=== PATIENT | female | born 1980 ===

== ENCOUNTER → 2017-01-25 | Emergency (ER) | payer SELFPAY ==
[~2017-01-25] MED LIST: Betamethasone Soluspan 30 mg/5mL Inj Susp IM ONE
--- NOTE | 2017-01-25 15:40 | OBHP ---
Datetime: 01/25/2017 12:30 IP Adm Impression: , intrauterine ; No Active Labor; Intact Membranes IP Chief Complaint Other: Sent by Dr. Ward IP Adm Impression Other: Steroid injection IP Admit Plan: Observation/Evaluation Admit Comment, IP Provider: This is a 36 y/o at 25w6d of GA of Twin , WINSOME : 05/04/17 based on LMP who was sent by [facility]'s office ( dr. Ward) for steroid injection. Patient reports that yesterday she was feeling lower abdomianl pressure sensation associated with mild hip pain for 1 danny r, and today this morning for a couple of hours she was feeling the same lower abdominal cramps like menses, pressure sensation with hip pain. But denies uterine contractions, LOF and /Or vaginal bleedi ng. Patient was sent by dr. Ward to receive first dose of steroid injection due to cervix length. Reports good movemnets. O:as above Growth scan on 01/25/17 showed: cervix measured 3.6 cm with funneling noted measuring 1.6 x 1.3 cm. A: 36 y/o at 25w6d of GA of Twin , with decreased cervix length,and in no active labor. Plan: -Continues external monitor -Betamethasone 12 mg IM first dose today. -Patient intructed to come back tomorrow for second dose of steroid. -Case discussed with Dr. Kassi Alvarez PGY1 OBH ADDENDUM pt seen _ examined by me. Correction and clarification of above- cervical lenght norml but funnel ing noted on us of [id number]. obhx: x4. no h/o ptd pmhx: denies pshx: denies medic: pnv shx: denies etoh, drugs or tobacco i: 25.6wks with twins p: betamethasone 12mg x1 now. indication for betameth d/w pt pelvic rest until delivery Pelvic Type - PN: Adequate Extremities - PN: Normal Abdomen - PN: Normal Lungs - PN: Normal Heart - PN: Normal Thyroid - PN: Normal Neurologic - PN: Normal HEENT - PN: Normal General - PN: Normal FHR - Baseline A Provider: 135, 145 Membranes, Provider: Intact Contraction Comments Provider: no Comments, ACOG Physical Exam: No VE or Speculum exam done IP Hx Assessment: The History has been Reviewed and is Current EGA AdmitDate IP: 25.6 Vital Signs Provider: Reviewed; Within Normal Limits IP Chief Complaint: Other NICHD Variability Prov Fetus A: Moderate 6-25bpm NICHD Accel Fetus A IP Provider: 10X10 FHR Category Provider Fetus A: Category I NICHD Decel Fetus A IP Provider: None
== END | disposition home or self-care (01) ==
LOC: H.EROB2 11:13
DX: O30.003 Twin pregnancy, unspecified number of placenta and unspecified number of amniotic sacs, third trimester (principal); O26.93 Pregnancy related conditions, unspecified, third trimester; R10.2 Pelvic and perineal pain; Z3A.25 25 weeks gestation of pregnancy; Z23 Encounter for immunization

== ENCOUNTER 2017-01-26 13:45 | Emergency (ER) | payer SELFPAY ==
[2017-01-26 13:50] VITALS: BMI 32.4
[2017-01-26] MEDS ORDERED: Betamethasone Soluspan 30 mg/5mL Inj Susp IM ONE (13:50)
--- NOTE | 2017-01-26 19:40 | OBDCSUM ---
Datetime: 01/26/2017 13:42 Discharged to, Provider: Home Follow up at, Provider: Shakila Reddy NP Disch Instr Activity: Normal activity Disch Instr Diet: Regular Discharge Time: 01/26/2017 13:43 Follow up in weeks, Provider: 02/24/2017 Disch Referrals: None Discharge Comment, Provider: Surinder second steroid dose Discharge Diagnosis Prov Other: Shortened cervix
--- NOTE | 2017-01-26 19:40 | OBHP ---
Datetime: 01/26/2017 14:00 Admit Comment, IP Provider: This is a 36 y/o at 25w6d of GA of Twin , WINSOME : 05/04/17 based on LMP who was sent for 2nd steroid injection. Reports good movemnets. O:as above Growth scan on 01/25/17 showed: cervix measured 3.6 cm with funneling noted measuring 1.6 x 1.3 cm. A: 36 y/o at 25+w Shortened cervix length Plan: -Betamethasone 12 mg IM 2nd dose follow up as scheduled 1-2w Abdomen - PN: Normal Back - PN: Normal HEENT - PN: Normal General - PN: Normal Comments, ACOG Physical Exam: ROS: General - no fatigue HEENT: No MATIAS; no visual disturbance CV: no CP; no palpitations RESP: No Cough; no SOB GI: No N/V/D : No F/U/D MS: no joint pain Pool Provider: Negative IP Hx Assessment: The History has been Reviewed and is Current EGA AdmitDate IP: 26.0 IP Chief Complaint: Other FHR Category Provider Fetus A: Category I NICHD Decel Fetus A IP Provider: None
== END 2017-01-26 23:00 | disposition home or self-care (01) ==
LOC: H.EROB2 13:45
DX: O26.872 Cervical shortening, second trimester (principal); O30.002 Twin pregnancy, unspecified number of placenta and unspecified number of amniotic sacs, second trimester

== ENCOUNTER 2018-03-30 14:42 | Emergency (ER) | payer SELFPAY ==
--- NOTE | 2018-03-30 17:33 | OBHP ---
Datetime: 03/30/2018 17:26 IP Adm Impression: , intrauterine ; No Active Labor; Intact Membranes IP Admit Plan: Observation/Evaluation; Discharge home Admit Comment, IP Provider: The patient's a 37-year-old G6 para 6 at 31 weeks gestation. Patient sta nuris she fell on her buttocks on 03/29/2018 and decided to seek medical attention. Patient denies any vaginal bleeding any leakage of fluid she reports good movement. Patient's care has be en unremarkable. Past medical history hypothyroidism Medications Synthroid and vitamins Past surgical history 1 previous delivery twin Past obstetrical history 4 normal spontaneous vaginal deliveries Social history denies alcohol tobacco use Review of systems patient denies headache chest pain shortness of breath palpitations nausea vomit ing diarrhea heat or cold intolerance easy bruisability musculoskeletal or neurological complaints Vital signs stable afebrile Physical exam seeing notes Intrauterine at 31 weeks status post fall approximately 24 hours ago. heart rate monitor reactive Bedside sonogram breech presentation adequate fluid records from [facility] health reviewed Patient discharged home patient to follow up with PMDD in 1 week Pelvic Type - PN: Adequate Extremities - PN: Normal Abdomen - PN: Normal Back - PN: Normal Breast - PN: Not Done Lungs - PN: Normal Heart - PN: Normal Thyroid - PN: Normal Neurologic - PN: Normal HEENT - PN: Normal General - PN: Normal FHR - Baseline A Provider: 145 Gestation - Est Wks by US: 31.0 Pool Provider: Negative EGA AdmitDate IP: 31.6 Vital Signs Provider: Reviewed IP Chief Complaint: Trauma/Fall NICHD Variability Prov Fetus A: Moderate 6-25bpm NICHD Accel Fetus A IP Provider: 15X15 FHR Category Provider Fetus A: Category I NICHD Decel Fetus A IP Provider: None Dilatation, Provider: 0 Effacement, Provider: 0 Station, Provider: -2 Genitourinary Exam: Normal DTRs - PN: Normal
[2018-03-30 22:02] VITALS: BP 92/59; PULSE 78; RESP 18; TEMP 98.2; O2SAT 100
== END 2018-03-30 17:35 | disposition home or self-care (01) ==
LOC: H.EROB2 14:42
DX: O36.93X0 Maternal care for fetal problem, unspecified, third trimester, not applicable or unspecified (principal); Z3A.31 31 weeks gestation of pregnancy; Z04.3 Encounter for examination and observation following other accident

== ENCOUNTER 2018-05-14 22:12 | Inpatient (IN) | payer MEDICAID, SELFPAY ==
[2018-05-14 22:49] VITALS: BMI 30.9
[2018-05-14] MEDS ORDERED: ceFAZolin IV 2 gm in Dextrose 2 GM/50 ML BAG IVPB ONE (22:49)
[2018-05-14] MEDS ORDERED: Lactated Ringer's 1,000 ML IV ONE ×2 (22:49)
[2018-05-14] MEDS ORDERED: Propofol 10 mg/ml Inj (20 ML) ONE ×2 (22:52→23:15)
[2018-05-14] MEDS ORDERED: Rocuronium 10 mg/ml (5 ml) ONE (22:53)
[2018-05-14] MEDS ORDERED: cefOXitin IV 1 gm in Dextrose 1 GM/50 ML BAG IVPB ONE (22:55)
[2018-05-14] MEDS ORDERED: Oxytocin 30 units/LR 500ML 30 U/500 ML BAG IV ONE (22:59)
[2018-05-14] MEDS ORDERED: Lactated Ringer's 1,000 ML IV SCH (23:00)
[2018-05-14] MEDS ORDERED: Cellulose Hemostat 2X3 Sheet ONE (23:45)
[2018-05-15] MEDS ORDERED: cefOXitin IV 1 gm in Dextrose 1 GM/50 ML BAG IVPB ONE
[2018-05-15] MEDS ORDERED: Oxycodone/Acetaminophen 5/325 mg Tab PO PRN ×2 (00:15→10:04)
[2018-05-15] MEDS ORDERED: Dexamethasone 4 mg/1 ml IVP PRN (00:31)
--- NOTE | 2018-05-15 00:36 | OBDS ---
DELIVERY PERSONNEL Delivery Doctor: Jeremy Payne MD Wire Spooler: Мария Mary RN/Yovana Young RN Anesthesiologist: Jina Barillas MD Resident: Azul MATERNAL INFORMATION Delivery Anesthesia: General Medications in Delivery: Pitocin Maternal Complications: Precipitous Labor (<3hrs) Provider Comments: Repeat section of a viable female infant with BW of 2980gm delivered in complete breech presentation with score of 9 and 9. EBL- 800mls Patient tolerated the prodedure well LABOR SUMMARY EDC: 05/26/2018 00:00 No. Babies in Womb: 1 Attempted: No Labor Anesthesia: General LABOR INFORMATION Reason for Induction: Not Applicable Group B Beta Strep: Negative Antibiotics # of Doses: n/a Antibiotics Time of Last Dose: n/a Steroids Given: None Reason Steroids Not Administered: Not Applicable MEMBRANES Membranes Rupture Method: Spontaneous Rupture of Membranes: 05/14/2018 22:00 Length of Rupture (hrs): 1.27 Amniotic Fluid Color: Clear Amniotic Fluid Amount: Moderate STAGES OF LABOR Stage 3 hrs: 0 Stage 3 min: 1 CSECTION DELIVERY Primary Indication: Repeat Secondary Indication: Breech CSection Urgency: Non Elective CSection Incidence: Repeat Labor: Labor Elective: Nonelective CSection Incision: Lower Uterine Transverse BABY A INFORMATION Delivery Date/Time: 05/14/2018 23:16 Method of Delivery: Born in Route : No : N/A Forceps: N/A Vacuum Extraction: N/A Shoulder Dystocia : No SHOULDER DYSTOCIA BABY A Delivery Date/Time: 05/14/2018 23:16 PRESENTATION/POSITION BABY A Presentation: Breech PLACENTA INFORMATION BABY A Placenta Delivery Time : 05/14/2018 23:17 Placenta Method of Delivery: Expressed Placenta Status: Delivered SCORES BABY A Heart Rate 1 min: >100 bpm Resp Effort 1 min: Good Cry Reflex Irritability 1 min: Cough or Sneeze or Pulls Away Muscle Tone 1 min: Active Motion Color 1 min: Body Gorst, Extremities Blue Resuscitation Effort 1 min: Tactile Stimulation SCORE 1 MIN: 9 Heart Rate 5 min: >100 bpm Resp Effort 5 min: Good Cry Reflex Irritability 5 min: Cough or Sneeze or Pulls Away Muscle Tone 5 min: Active Motion Color 5 min: Body Gorst, Extremities Blue Resuscitation Effort 5 min: N/A SCORE 5 MIN: 9 INFORMATION BABY A Gestational Age at Delivery: 38.2 Gestational Status: Term Infant Outcome : Liveborn Condition : Stable Infant Sex: Female IDENTIFICATION/MEDS BABY A ID Band Location: Left Leg; Left Arm WEIGHT/LENGTH BABY A Birthweight (gms): 2980 Infant Weight (lb): 6 Infant Weight (oz): 9 CORD INFORMATION BABY A No. Cord Vessels: 3 Cord Blood Taken: Yes Suction: Mouth; Nose ASSESSMENT BABY A Complications: None Physical Findings at Delivery: Within Normal Limits Respirations: Appears Normal Health Companion/ALS Called : No Care By: Dr Summers/Kaia Transferred To: Nursery
[2018-05-15] MEDS: HYDROmorphone 0.5 mg/0.5 ml ISec IVP PRN ×2 (00:46→01:45)
[2018-05-15 00:48] VITALS: RESP 20
--- NOTE | 2018-05-15 00:49 | OBHP ---
Datetime: 05/14/2018 22:44 IP Adm Impression: Term, intrauterine ; Active labor; Ruptured Membranes IP Adm Impression Other: Previous Section X1 IP Admit Plan: Admit to unit; Initiate Section protocol Admit Comment, IP Provider: Patient was brought in from the emergency room c/o ruptured membranes si nce 7pm with strong pelvic pressure and pain. She is with 1 set of twins in her last which was delivered by a section. Patient had been scheduled for a repeat delivery at 39weeks.She denies any vaginal bleedi ng. PNC is with Dr Palacios at the [facility]. O: Patient was apparently expressing pain from regular contractions. Abd: soft, NT, Bs- pressnt TOCO - Q 2-4 mins apart FHR- category 1 : breech felt, 10/100/-2 Assessment: IUP at 38.2wks with breech presentation Previous X1 Active labor Spontaneous rupture of membranes. Plan: Admit to LND Prepare for an delivery Extremities - PN: Normal Abdomen - PN: Normal Back - PN: Normal Lungs - PN: Normal Heart - PN: Normal Neurologic - PN: Normal General - PN: Normal Presentation-Admit: Breech FHR - Baseline A Provider: 150s Amniotic Fluid Color, Provider: Meconium, Light Membranes, Provider: Ruptured Contraction Comments Provider: irregular Gestation - Est Wks by US: 38.2 EGA AdmitDate IP: 38.2 Vital Signs Provider: Reviewed IP Chief Complaint: Uterine contractions; Suspected ruptured membranes; Maternal discomfort NICHD Variability Prov Fetus A: Moderate 6-25bpm NICHD Accel Fetus A IP Provider: 15X15 FHR Category Provider Fetus A: Category I NICHD Decel Fetus A IP Provider: None Dilatation, Provider: 10 Effacement, Provider: 100 Station, Provider: -2 Genitourinary Exam: Normal
--- NOTE | 2018-05-15 00:53 | PCM.SURG1 ---
Surgeon's Initial Post Op Note - Surgeon's Notes Surgeon: Dr Payne Hr Business Partner Consultant: Dr Liang( [facility] Practice Resident) Type of Anesthesia: General Endo Anesthesia Administered By: Dr Barillas Pre-Operative Diagnosis: IUP at 38.2 wks, Previous Section in labor, SROM,Breech presentatiom Operative Findings: Live female infant with BW of 2980g delivered in complete breech presentation in the left sacroanterior positioning. scores 9 and 9. Light meconium amniotic fluid. Lower uterine segment was very thin. The uterus, both fallopian tubes and both ovaries appeared normal. IV Fluid intake - 1500mls. EBL - 800mls. Urine output - 300mls Post-Operative Diagnosis: Same as Preop diagnosis Operation Performed: Repeat Low transverse Section Specimen/Specimens Removed: Routine cord blood Estimated Blood Loss: EBL {In ML}: 800 Blood Products Given: N/A Post-Op Condition: Good Date of Surgery/Procedure: 05/15/18 Time of Surgery/Procedure: 00:59
[2018-05-15 02:19] LABS: BASO # 0.1 K/uL (0.0-0.2); BASO % 0.6 % (0.0-2.0); EOS % 0.2 % (0.0-4.0); HEMOGLOBIN 11.2 g/dL (12.0-16.0); LYMPH # 1.9 K/uL (1.0-4.3); LYMPH % 21.8 % (20.0-40.0); MEAN CELL VOLUME 88.7 fl (81.0-99.0); MEAN CORPUSCULAR HEMOGLOBIN 30.7 pg (27.0-31.0); MEAN CORPUSCULAR HGB CONC 34.6 g/dL (33.0-37.0); MEAN PLATELET VOLUME 9.9 fl (7.2-11.7); MONO # 0.6 K/uL (0.0-0.8); MONO % 6.6 % (0.0-10.0); NEUT # 6.2 K/uL (1.8-7.0); NEUT % 70.8 % (50.0-75.0); RBC 3.64 Mil/uL (3.80-5.20); RED CELL DISTRIBUTION WIDTH 13.5 % (11.5-14.5); WHITE BLOOD COUNT 8.8 K/uL (4.8-10.8)
[2018-05-15] MEDS ORDERED: Lactated Ringer's 1,000 ML IV SCH (06:06)
[2018-05-15] MEDS: Levothyroxine 150 MCG TAB PO SCH (06:27)
[2018-05-15] MEDS ORDERED: Levothyroxine 150 MCG TAB PO SCH (06:30)
[2018-05-15 07:33] LABS: HEMOGLOBIN 10.4 g/dL (12.0-16.0); MEAN CELL VOLUME 87.6 fl (81.0-99.0); MEAN CORPUSCULAR HEMOGLOBIN 31.1 pg (27.0-31.0); MEAN CORPUSCULAR HGB CONC 35.5 g/dL (33.0-37.0); RBC 3.33 Mil/uL (3.80-5.20); RED CELL DISTRIBUTION WIDTH 13.6 % (11.5-14.5); WHITE BLOOD COUNT 16.5 K/uL (4.8-10.8)
[2018-05-15] MEDS ORDERED: Multivitamin With Minerals Tab PO SCH (09:00)
[2018-05-15] MEDS: Multivitamin With Minerals Tab PO SCH (09:06)
[2018-05-15] MEDS: Oxycodone/Acetaminophen 5/325 mg Tab PO PRN ×2 (10:47→21:45)
--- NOTE | 2018-05-15 14:32 | OBPPN ---
Datetime: 05/15/2018 09:10 PP Nausea Prov: Denies PP Flatus Prov: No PP BM Prov: No PP Heart Prov: Normal PP Lungs Prov: Normal PP Abdomen/Uterus Prov: Normal PP Extremities Prov: Normal PP C/S Incision Prov: Normal PP Impression Prov: Normal progression (Annotations: Data stored by CPN on behalf of user ) PP Progress Note Prov: POD 1 37 yo , s/p repeat on 05/14 at 2316. Pt seen/examined this am, lundberg was removed p rior to seeing pt. Pt to receive pain medication PO. Tolerating liquid diet- drank some juice. Has pa ssed gas, not gotten out of bed yet. Stated she felt tired and wanted to sleep. Denied headache, ches t pain, dyspnea. PE: Gen: awake, alert Resp: clear to ausc biltaterally, normal effort CV: RRR Abd: +BS, appropriately TTP, uterus firm below umbilicus; dressing clean,dry,intact Ext: no edema, with SCDs Neuro/Psych: AAOx3, no gross deficit, preserved affect/mood PP H/H: 10.4/29.2 A/P: 37 yo , PPD 1, s/p repeat on 05/14 at 2316. Pain control, advance diet as tolerated, encourage incentive spirometry use, encourage ambulation and , SCDs. -[email or web address] Attending Note:Patient was seen with the Resident and I agree with the above. Vital Signs Provider PP: Reviewed; Within Normal Limits
[2018-05-15] MEDS ORDERED: Simethicone 40 mg/0.6 ml Liquid (30 ml) PO PRN (17:57)
[2018-05-15] MEDS: Simethicone 80 mg Chewtab PO PRN (18:58)
[2018-05-16] MEDS: Levothyroxine 150 MCG TAB PO SCH (06:01)
[2018-05-16] MEDS: Simethicone 80 mg Chewtab PO PRN ×2 (06:01→21:37)
[2018-05-16] MEDS: Oxycodone/Acetaminophen 5/325 mg Tab PO PRN ×3 (06:03→21:37)
--- NOTE | 2018-05-16 08:07 | OBPPN ---
Datetime: 05/16/2018 06:45 PP Pain Prov: Within normal limits PP Nausea Prov: Denies PP Flatus Prov: No PP BM Prov: No PP Heart Prov: Normal PP Lungs Prov: Normal PP Abdomen/Uterus Prov: Normal PP Lochia Prov: Normal PP CVA Tenderness Prov: Normal PP Extremities Prov: Normal PP C/S Incision Prov: Normal PP Progress Prov: Normal PP Impression Prov: Normal progression; Pain PP Progress Note Prov: [id number] S: 37 yo . s/p C section on 05/14/18 POD 2. Seen and examined at bedside this am. Patient d enies any significant overnight events except gas pains and constipation since last night. Also repo rts severe pelvic pain which extended to her left back asked for pain medicine to control. OOB/Ambula tion well without dizziness. Bottle feeding without difficulty. Tolerating liquids well, advancing as tolerated. Lochia is similar to menses. Voiding freely with no blood noted, no bowel movement, not p assing gas per rectum. Denies fever/chills, diarrhea, nausea/vomiting, CP/SOB , Lightheadedness, calf pain. O: BP:111/65, HR:85, RR:20, T 98.2F CBC 10.4/29.2,blood type: O+, rubella: Immune, TDAP-03/18/18 PHYSICAL EXAM: GEN: AAOx3, Resting comfortably in bed, NAD HEENT: NCAT, White sclera, pink conjunctiva, oral mucosa moist. LUNGS: CTA B/L, no wheezing, rhonchi, or rales, B/L chest rise CVS: RRR, S1, S2, No murmurs, rubs, gallops ABD: ND, +BS, firm fundus @ umbilical level. Soft, appropriate TTP, Incision: Clean, dry and intac t. No induration, redness or fluctuation. EXT: No edema, negative Nelli's sign, calves nontender NEURO/Psych: no gross focal deficit, preserved affect and mood. A/P 37yo POD2 s/p on 05/14/18 @ 23:16. Pt afebrile, tolerating pain with medication, tolerating liquid diet advancing as tolerated, adequate urine output. Encouraged and ambulation Percocet 5/325 mg 1-2 tablets po q/ 6 hrs if mod/severe pain Ibuprofen 600 mg 1 tab q/ 6 hrs po if mild pain. Colace-constipation Qdpvfdb38.2mg PO HS for gas [id number] Discussed post op contraception patient signed consent for BTL, however due to STAT section didn t end up doing it, patient wants IUD. Discussed follow up at [facility] in 1 wk for wound check, 4-6 post Bri Camarillo M.D. PGY-1 Reviewed and discussed with Attending OB Hospitalist Addendum: Pt seen and examined by me. Agree w/ above. POD 2 s/p repeat c/s, doing well, bottle feeding. Encouraged ambulation. (ES) Vital Signs Provider PP: Reviewed
[2018-05-16] MEDS: Multivitamin With Minerals Tab PO SCH (09:01)
--- NOTE | 2018-05-16 09:01 | OP ---
PROCEDURE DATE: 05/14/2018 PREOPERATIVE DIAGNOSIS: Intrauterine at 38 weeks and 2 days with a history of previous section in labor with spontaneous rupture of membrane and breech presentation. POSTOPERATIVE DIAGNOSIS: Intrauterine at 38 weeks and 2 days with a history of previous section in labor with spontaneous rupture of membrane and breech presentation. PROCEDURE DONE: A repeat low transverse section performed on 05/14/2018. SURGEON: Dr. Payne. CROSSING WATCHMAN: Dr. Liang, family practice resident. Assistance for this procedure was needed for exposure of tissues and help in the conduct of the surgery. Manager Assurance remained with the surgery throughout its entire length. TYPE OF ANESTHESIA: General endotracheal. ANESTHESIA ADMINISTERED BY: Dr. Barillas. FINDINGS: A live female infant with weight of 2980 grams delivered in complete breech presentation with a left sacral anterior positioning. The scores were 9 in the first and fifth minutes respectively. The amniotic fluid has light meconium. The lower uterine segment was very thin. The uterus both fallopian tubes and both ovaries appeared normal. IV FLUID INTAKE: About 1500 mL. ESTIMATED BLOOD LOSS: 800 mL. URINE OUTPUT: 300 mL of clear urine. DESCRIPTION OF PROCEDURE: After obtaining an informed consent, the patient was sent to the OR, where she was placed in a supine position with the left lateral tilt on the OR table. The patient was given general anesthesia without any problem. The patient was then prepped and draped in the usual sterile fashion. A Pfannenstiel skin incision was made using a scalpel. This incision was carried through the subcutaneous tissues so the rectus fascia was identified. Using a Bovie device, a transverse incision was made in the mid portion of the rectus muscles. This incision was extended to both sides using the Bovie device. The rectus fascia was lifted off the underlying rectus muscles both superiorly and inferiorly by means of both sharp and blunt dissection. The rectus muscle was in the midline to expose the peritoneum, which was tented between 2 Gabriela clamps and sharply entered and with good visualization of the bladder. While the abdominal cavity was entered, the above findings were noted. The bladder flap was created and the bladder peritoneum retracted inferiorly to expose the lower uterine segment which was noted to be very thin. A lower transverse low incision was made with the scalpel and this was extended to both sides bluntly using both index fingers. The baby which was located in complete breech presentation with the left sacral anterior positioning was identified. Babys right leg was grabbed and the baby was delivered through the uterine incision. The mouth and nostrils of baby were bulb suctioned after delivery and the 3-vessel cord was clamped and cut and was given to the nurse. Umbilical cord blood was taken for routine use and the placenta was manually removed from the uterine cavity. The uterus was brought out of the abdominal cavity and was cleaned of all debris using dry laparotomy pads. The uterine incision was then closed in 2 layers using Vicryl #0. The first layer in running locked fashion and the second layer in running fashion and imbricating the second layer. Once hemostasis has been noted, irrigation of the pelvis both anterior and posterior to the uterus was undertaken. The uterus was returned to the abdominal cavity. Once hemostasis was assured, attention was turned to the anterior abdominal wall, which was closed in layers with 2-0 Vicryl for the peritoneum and the rectus muscles. The rectus fascia was re-approximated using Vicryl #0. The subcutaneous tissue was brought together using #2-0 plain. The skin was closed in the subcuticular fashion using Vicryl #4-0. The patient tolerated the procedure well. All counts of instruments, laparotomy pads, and needles used were correct x3. The patient was sent to the recovery room, awake, and in stable condition. Silvestre Payne MD BESS
[2018-05-17] MEDS: Oxycodone/Acetaminophen 5/325 mg Tab PO PRN (06:17)
[2018-05-17] MEDS: Levothyroxine 150 MCG TAB PO SCH (06:18)
[2018-05-17] MEDS: Simethicone 80 mg Chewtab PO PRN (08:14)
[2018-05-17] MEDS: Multivitamin With Minerals Tab PO SCH (08:14)
--- NOTE | 2018-05-17 10:02 | OBPPN ---
Datetime: 05/17/2018 07:08 PP Pain Prov: Within normal limits PP Nausea Prov: Denies PP Flatus Prov: No PP BM Prov: Yes PP Heart Prov: Normal PP Lungs Prov: Normal PP Abdomen/Uterus Prov: Normal PP Lochia Prov: Normal PP Extremities Prov: Normal PP C/S Incision Prov: Normal PP Impression Prov: Normal progression PP Plan Prov: Continue present management; Discharge PP Progress Note Prov: [id number] S: 37 yo . s/p C section on 05/14/18 POD 3. Seen and examined at bedside this am. Patient d enies any significant overnight events except gas pains and mild pelvic pain under control with pain meds. OOB/Ambulation well without dizziness. Bottle feeding without difficulty. Tolerating regular di et. Lochia is similar to menses. Voiding freely with no blood noted, + bowel movement, not passing ga s per rectum. Denies fever/chills, diarrhea, nausea/vomiting, CP/SOB , lightheadedness, calf pain. O: BP:98/60, HR:103, RR:20, T98.3 F CBC 10.4/29.2,blood type: O+, rubella: Immune, TDAP-03/18/18 PHYSICAL EXAM: GEN: AAOx3, Resting comfortably in bed, NAD HEENT: NCAT, White sclera, pink conjunctiva, oral mucosa moist. LUNGS: CTA B/L, no wheezing, rhonchi, or rales, B/L chest rise CVS: RRR, S1, S2, No murmurs, rubs, gallops ABD: ND, +BS, firm fundus @ umbilical level. Soft, appropriate TTP, Incision: Clean, dry and intac t. No induration, redness or fluctuation. Small bruising noted central umbilicus EXT: No edema, negative Nelli's sign, calves nontender NEURO/Psych: no gross focal deficit, preserved affect and mood. A/P 37yo POD2 s/p on 05/14/18 @ 23:16 POD3. Pt afebrile, tolerating pain with medica tion, tolerating regular diet, adequate urine output. Continue bottle feeding, encouraged and ambulation Percocet 5/325 mg 1-2 tablets po q/ 6 hrs if mod/severe pain Ibuprofen 600 mg 1 tab q/ 6 hrs po if mild pain. PNV 1 tab po daily Colace and Ujslpkr52.2mg PO HS for constipation Simethicone for flatulence Synthroid 150 mcg PO daily -Hypothyroidism Post op contraception- patient wants IUD. F/U at [facility] 1 wk wound check 05/26 Dr. Loja 10:00am, visit 05/26 11: 20am, and in 4-6 weeks 06/14 Dr. Palacios for post- visit. D/C patient today Bri Camarillo M.D. PGY-1 Reviewed and discussed with Attending IP PP Procedures: None Vital Signs Provider PP: Reviewed; Within Normal Limits
--- NOTE | 2018-05-17 10:07 | OBDCSUM ---
Datetime: 05/17/2018 07:15 Discharged to, Provider: Home Follow up at, Provider: Dr. Loja at [facility] Disch Instr Activity: May be up to bathroom; May be up for meals; May Shower Disch Instr Diet: Regular Discharge Instructions, Provider: Routine instructions given Discharge Diagnosis, Provider: Term Delivered Discharge Time: 05/17/2018 07:18 Follow up in weeks, Provider: 1wk, then 4-6wk Disch Referrals: None Contraception discussed, Prov: Yes Disch Activity Restrictions: No exercising; No lifting; Minimize stair-climbing; No sexual activity; Nothing in vagina - [place], tampons, douche Discharge Comment, Provider: Discharge Instructions: 1. Continue bottle feeding, encourage 2. vitamin 1 tab po daily 3. Ibuprofen 600mg 1 tab as needed for mild pain 4. Percocet 5/325mg 1 tab as needed for severe pain 5. Levothyroxine 125 1 tab daily for hypothyroidism 6. Senokot 17.2mg as needed for constipation 7. Simethicone 80mg as needed for bloating/gas 8. ER precautions: If excessive bleeding or fever without relief from medication, go to ED 9. Avoid stairs, exercising, heavy lifting 10. Nothing in vagina for 4-6weeks 11. Contraception post D/C- IUD 12. F/U at [facility] 1 wk wound check 05/26 Dr. Loja 10:00am, visit 05/26 11:20am, and in 4-6 weeks 06/14 Dr. Palacios for post- visit. Patient seen and evaluated by me this am. Patient cleared for discharge Contraception after Delivery: IUD
[2018-05-17 16:10] VITALS: BP 109/61; PULSE 91; TEMP 98.6; O2SAT 99
== END 2018-05-17 11:55 | disposition home or self-care (01) | DRG 371 ==
LOC: H.EROB2 22:12 → H.L&D 22:49 → H.OB/GYN 05-15 05:30
PROVIDERS: ADMIT Obstetrics & Gynecology; ATTEND Obstetrics & Gynecology
PROC: 10D00Z1 Extraction of Products of Conception, Low, Open Approach (ICD-10-PCS; principal; 2018-05-14)
PROC: 4A1HXCZ Monitoring of Products of Conception, Cardiac Rate, External Approach (ICD-10-PCS; 2018-05-14)
DX: O34.211 Maternal care for low transverse scar from previous cesarean delivery (principal); O32.1XX0 Maternal care for breech presentation, not applicable or unspecified; O77.0 Labor and delivery complicated by meconium in amniotic fluid; O62.3 Precipitate labor; O99.284 Endocrine, nutritional and metabolic diseases complicating childbirth; E03.9 Hypothyroidism, unspecified; Z37.0 Single live birth; Z3A.38 38 weeks gestation of pregnancy; K59.00 Constipation, unspecified; O09.523 Supervision of elderly multigravida, third trimester

== ENCOUNTER 2018-06-01 20:33 | Emergency (ER) | payer SELFPAY ==
[2018-06-01 20:33] VITALS: BMI 30.9
[2018-06-01 20:45] VITALS: BP 103/70; PULSE 70; RESP 16; TEMP 98.4; O2SAT 98
--- NOTE | 2018-06-01 21:01 | ED PDOC ---
HPI: General Adult Time Seen by Provider: 06/01/18 21:01 Chief Complaint (Nursing): Wound Check Chief Complaint (Provider): wound check History Per: Patient, Family ( at bedside is translating for patient in [place]arag[place]) Additional Complaint(s): 37-year-old female status post 18 days ago presents with discharge, bleeding and pain from incision site that started yesterday. Patient states she measured temperature at home yesterday and it was 100. She has been taking ibuprofen every 6 hours for pain. Denies any dysuria, nausea, vomiting, diarrhea or constipation. PMD: none Past Medical History Reviewed: Historical Data, Nursing Documentation, Vital Signs Vital Signs: Last Vital Signs Temp 98.4 F 06/01/18 20:42 Pulse 70 06/01/18 20:42 Resp 16 06/01/18 20:42 BP 103/70 06/01/18 20:42 Pulse Ox 98 06/01/18 22:11 - Medical History PMH: No Chronic Diseases - Surgical History Surgical History: (x 2) - Family History Family History: States: No Known Family Hx - Living Arrangements Living Arrangements: With Family - Social History Current smoker - smoking cessation education provided: No Alcohol: None Drugs: Denies - Home Medications Home Medications: Ambulatory Orders Medication Instructions Recorded Pnv with Ca,No.72/Iron/FA [Pnv 1 tab PO DAILY 03/10/16 Plus Multivit Tab] Ibuprofen [Motrin Tab] 600 mg PO Q6H PRN #30 tab 05/17/18 Levothyroxine [Synthroid] 150 mcg PO DAILY #30 tab 05/17/18 Levothyroxine [Synthroid] 150 mcg PO DAILY@0630 #30 tab 05/17/18 Multimineral/Multivitamin 1 tab PO DAILY tab 05/17/18 [Therapeutic-M Tab] Sennosides A and B [Senokot Tab] 17.2 mg PO HS #7 tab 05/17/18 Simethicone [Mylicon Chew Tab] 80 mg PO QID PRN #14 chew 05/17/18 oxyCODONE/Acetaminophen [Percocet 1 tab PO Q4 PRN #20 tab 05/17/18 5/325 mg Tab] Cephalexin [Keflex] 500 mg PO TID #21 capsule 06/01/18 Ibuprofen [Motrin Tab] 800 mg PO Q8 PRN #20 tab 06/01/18 - Allergies Allergies/Adverse Reactions: Allergies Allergy/AdvReac Type Severity Reaction Status Date / Time No Known Allergies Allergy Verified 06/15/14 17:58 Review of Systems ROS Statement: Except As Marked, All Systems Reviewed And Found Negative Constitutional: Positive for: Fever (low grade) Respiratory: Negative for: Cough Gastrointestinal: Positive for: Abdominal Pain. Negative for: Nausea, Vomiting , Diarrhea Genitourinary Female: Positive for: Other ( incision with pain and drainage) Physical Exam - Reviewed Nursing Documentation Reviewed: Yes Vital Signs Reviewed: Yes - Physical Exam Appears: Positive for: Well, Non-toxic, No Acute Distress Skin: Positive for: Normal Color. Negative for: Rash Eye Exam: Positive for: Normal appearance Cardiovascular/Chest: Positive for: Regular Rate, Rhythm Respiratory: Positive for: Normal Breath Sounds Gastrointestinal/Abdominal: Positive for: Other (Malodorous discharge and mild bleeding noted to incision with minimal tenderness to palpation) Back: Negative for: L CVA Tenderness, R CVA Tenderness Extremity: Positive for: Normal ROM Neurologic/Psych: Positive for: Alert, Oriented - Laboratory Results Result Diagrams: 06/01/18 22:10 06/01/18 21:40 Urine POC: Negative Urine dip results: Negative for: Leukocyte Esterase, Blood, Nitrate, Ketones, Glucose, Bilirubin, Protein - ECG O2 Sat by Pulse Oximetry: 98 Pulse Ox Interpretation: Normal Medical Decision Making Medical Decision Makin-year-old female with pain to surgical site incision (s/p 18 days ago) Plan: CBC CMP Blood cultures IVF Wound culture IV toradol Urine dip and test Patient feels better after meds given in ED. patient and family members at bedside are aware of all diagnostic testing results, all questions answered. Case discussed with OB carpet installation specialist Dr. Yu who states to obtain wound culture and sent patient home on Keflex. Labs are within normal limits except for finding of elevated platelets. No history of same. Case discussed further with Dr. Gillespie. Patient is stable for discharge and was advised to have labs repeated in 1-2 weeks. Disposition - Clinical Impression Clinical Impression: Wound infection - Patient ED Disposition Is Patient to be Admitted: No Counseled Patient/Family Regarding: Studies Performed, Diagnosis, Need For Followup, Rx Given - Disposition [facility]errals: [facility]] Disposition: Routine/Home Disposition Time: 23:01 Condition: STABLE Additional Instructions: Wash area daily with soap and water. Take prescription meds as directed. Follow- up with women[facility] clinic in 2-3 days. Prescriptions: Cephalexin [Keflex] 500 mg PO TID #21 capsule Ibuprofen [Motrin Tab] 800 mg PO Q8 PRN #20 tab PRN Reason: Pain, Moderate (4-7) Instructions: Wound Infection Forms: [employer] ([place]uan) Print Language: DOMINICAN Results - Lab Results Lab Results: 06/01/18 06/01/18 22:10 21:40 WBC 6.2 D RBC 3.58 L Hgb 10.8 L Hct 31.8 L MCV 88.8 MCH 30.2 MCHC 34.0 RDW 13.6 Plt Count 650 H D MPV 7.6 Neut % (Auto) 49.7 L Lymph % (Auto) 41.2 H Steele % (Auto) 7.5 Eos % (Auto) 0.6 Baso % (Auto) 1.0 Neut # (Auto) 3.1 Lymph # (Auto) 2.6 Steele # (Auto) 0.5 Eos # (Auto) 0.0 Baso # (Auto) 0.1 Sodium 140 Potassium 3.9 Chloride 105 Carbon Dioxide 26 Anion Gap 13 BUN 11 Creatinine 0.6 L Est GFR ( Amer) > 60 Est GFR (Non-Af Amer) > 60 Random Glucose 91 Calcium 9.6 Total Bilirubin 0.4 AST 38 H ALT 27 Alkaline Phosphatase 133 H Total Protein 8.3 H Albumin 4.3 Globulin 4.0 H Albumin/Globulin Ratio 1.1
[2018-06-01] MEDS ORDERED: Sodium Chloride 0.9% 1,000 ML IV STA (21:25)
[2018-06-01 22:17] LABS: BASO # 0.1 K/uL (0.0-0.2); EOS % 0.6 % (0.0-4.0); HEMOGLOBIN 10.8 g/dL (12.0-16.0); LYMPH # 2.6 K/uL (1.0-4.3); LYMPH % 41.2 % (20.0-40.0); MEAN CELL VOLUME 88.8 fl (81.0-99.0); MEAN CORPUSCULAR HEMOGLOBIN 30.2 pg (27.0-31.0); MEAN PLATELET VOLUME 7.6 fl (7.2-11.7); MONO # 0.5 K/uL (0.0-0.8); MONO % 7.5 % (0.0-10.0); NEUT # 3.1 K/uL (1.8-7.0); NEUT % 49.7 % (50.0-75.0); RBC 3.58 Mil/uL (3.80-5.20); RED CELL DISTRIBUTION WIDTH 13.6 % (11.5-14.5); WHITE BLOOD COUNT 6.2 K/uL (4.8-10.8)
[2018-06-01 22:27] LABS: ALB/GLOB RATIO 1.1 (1.0-2.1); ALBUMIN 4.3 g/dL (3.5-5.0); ALT/SGPT 27 U/L (9-52); AST/SGOT 38 U/L (14-36); BLOOD UREA NITROGEN 11 mg/dl (7-17); CALCIUM 9.6 mg/dL (8.4-10.2); GFR AFRICAN-AMERICAN > 60; GFR NON-AFRICAN AMERICAN > 60
== END 2018-06-01 23:10 | disposition home or self-care (01) ==
LOC: H.ER 20:33
DX: T81.4XXA Infection following a procedure, initial encounter (principal)
CPT/HCPCS: 80053; 81025; 85025; 87040; 87070; 96361; 96374; 99283; J1885; J7030